=== PATIENT | female | born 1965 | race Caucasian/White ===

== ENCOUNTER 2016-06-06 20:45 | Emergency (ER) | payer BC, OTHER ==
[2016-06-06] MEDS ORDERED: Sodium Chloride 0.9% 1,000 ML PRIMARY IV ONE (21:14)
[2016-06-06] MEDS ORDERED: ONDANSETRON 4 MG/2 ML VIAL IVP ONE (21:14)
--- NOTE | 2016-06-06 21:15 | EKG ---
[address] [address] Measurements Intervals [place] Rate: 50 P: 42 GA: 138 QRS: 76 QRSD: 84 T: 65 QT: 413 QTc: 386 Interpretive Statements SINUS BRADYCARDIA No previous ECG available for comparison Electronically Signed On 06-07-16 08:41:32 MST by Prasanth Soares MD [email or web address]
[2016-06-06 21:21] LABS: BASOPHILS # (AUTO) 0.02 10*3/UL; BASOPHILS % (AUTO) 0.3 % (0-1); EOSINOPHILS % (AUTO) 2.9 % (0-8); HEMATOCRIT 40.4 % (37.0-47.0); HEMOGLOBIN 13.5 g/dL (12.0-16.0); IMM GRAN % (AUTO) 0.2 % (0-5); IMM GRAN# (AUTO) 0.01 10*3/UL; LYMPHOCYTES % (AUTO) 35.4 % (10-50); MEAN CORPUSCULAR HGB CONC 33.4 g/dL (33-37); MEAN PLATELET VOLUME 9.5 FL (7.4-12.2); MONOCYTES # (AUTO) 0.62 10*3/UL (0.3-0.8); NEUTROPHILS # (AUTO) 3.19 10*3/UL; NEUTROPHILS % (AUTO) 51.2 % (50-80); RDW COEFFICIENT OF VARIATION 13.6 % (11.5-14.5); RED BLOOD COUNT 4.66 10^6/uL (4.20-5.40); WHITE BLOOD COUNT 6.22 10^3/uL (4.8-10.8)
--- NOTE | 2016-06-06 21:21 | PDOC ---
Abdomen/Flank HPI - General Chief Complaint: Abdomen Pain Stated Complaint: EPIGASTRIC PAIN SINCE 1200 Date Seen by Provider: 06/06/16 Time Seen by Provider: 21:16 Source: POSITIVE: Patient Exam Limitations: POSITIVE: No limitations Nurse's Notes Reviewed & Considered: Yes - History of Present Illness Initial Comments: Patient comes in today with chief complaint of abdominal pain. Patient developed epigastric abdominal pain at approximately noon today. She has had pain radiating into her chest that she describes as sharp. She denies any shortness of breath, no cough, she denies any nausea vomiting or diarrhea, no fever chills or sweats. Body Location Affected: REPORTS: Chest, Abdomen Timing: REPORTS: Abrupt Duration: <24 hours Quality: REPORTS: "Pain", Sharpness, Stabbing Abdominal Pain Onset Location: REPORTS: RUQ, LUQ, Epigastric Abdominal Pain Radiation: REPORTS: Epigastric, Chest Context: REPORTS: None Modifying Factors: improves with: Nothing Associated Symptoms: REPORTS: Chest pain Similar Symptoms Previously: No Recent Care Received: REPORTS: Denies Any Prior Injuries Related to Current Complaint?: No - Patient Home Medications Home Medications: Home Medications Acyclovir 1 tab PO BID #10 tab 05/27/13 Amphet Asp/Amphet/D-Amphet [Adderall 30 mg Tablet] 30 mg PO BID 06/06/16 - Patient Allergies Allergies/Adverse Reactions: Allergies Allergy/AdvReac Type Severity Reaction Status Date / Time No Known Drug Allergies Allergy Unknown NOT Verified 06/06/16 21:02 APPLICABLE Past Medical History - heen HEENT History: Denies History Cardiovascular History: Other (please comment) Additional Cardiovasular History: ATRIAL SEPTAL DEFECT Respiratory History: Sleep Apnea, Home CPAP Use Additional Gastrointestinal History: FLAT AND RIBBON LIKE STOOLS/OBESITY Genitourinary History: Incontinence Endocrine History: Denies History Musculoskeletal History: Back Pain Prosthesis or Implant: No Neurological History: Denies History Blood Disorders: Denies History Psychiatric History: Depression, Anxiety Disorders History of Sexually Transmitted Diseases: No Cancer History: Other (please comment) History of MDRO: No History of Other Communicable Diseases: No Alcohol Use: Occasionally Substance Use Type: None Previous Surgical History: Yes Type / Date of Surgery: ASD SURGERY 12-18/BLADDER SLING 07-09-05/ MARY/ GASTRIC BYPASS 01/22/11/HYSTER 04/14/99/TWO LEFT KNEE SCOPES/THORACOTOMY 04/10/12 Anesthesia Reactions: No Malignant Hyperthermia: No ROS - Limitations ROS Limitations: No Limitations Constitution: REPORTS: Denies Symptoms Cardiovascular: REPORTS: Chest Pain Respiratory: REPORTS: Denies Resp Symptoms Neurological: REPORTS: Denies Neuro Symptoms Gastrointestinal: REPORTS: Abdominal Pain Endocrine: REPORTS: Denies Symptoms Musculoskeletal: REPORTS: Denies MS Symptoms Genitourinary: REPORTS: Denies Symptoms Eyes: REPORTS: Denies Symptoms ENT: REPORTS: Denies Symptoms Skin: REPORTS: Denies Skin Symptoms Lympathic: REPORTS: Denies Lympathic Symptoms Immunologic: POSITIVE: Denies Symptoms Psychiatric: POSITIVE: Denies Psych Symptoms Abdominal/Flank Pain PE - General Appearance General Appearance: POSITIVE: Alert, Cooperative, No Acute Distress, No Evidence of Trauma - HEENT HEENT: POSITIVE: Head Inspection Nml, Eyes Inspection Nml, Ears Inspection Nml, Nose Inspection Nml, PERRL, EOMI - Neck Neck: POSITIVE: Normal Inspection - Respiratory Respiratory: POSITIVE: No Respiratory Distress, Breath Sounds Normal, Chest Non- Tender - Cardiovascular Cardiovascular: POSITIVE: Regular Rate and Rhythm, Heart Sounds Normal - Chest Chest: POSITIVE: Non Tender - Abdomen Abdomen: Soft: (All Quadrants), Normal Bowel Sounds: (All Quadrants), Tenderness Noted: (RUQ), (LUQ), Guarding: (RUQ), (LUQ) - Back Back: POSITIVE: Normal Inspection - Skin Skin: POSITIVE: Intact, Normal For Race, Warm, Dry, No Rash - Extremities Extremity: Non-Tender: (All Extremities), Normal ROM: (All Extremities), Normal Inspection: (All Extremities) - Neurological Neurological: POSITIVE: Affect Apporpriate, Oriented X3 Abdomen Progress - Results Reviewed by me Xrays/CTs/US Reviewed by me: Yes Discussed with Radiologist: Yes Lab Results Reviewed: Yes Lab Results:: Laboratory Results 06/06/16 06/06/16 Range/Units 21:10 21:55 WBC 6.22 (4.8-10.8) 10^3/uL RBC 4.66 (4.20-5.40) 10^6/uL Hgb 13.5 (12.0-16.0) g/dL Hct 40.4 (37.0-47.0) % MCV 86.7 (81-99) FL MCH 29.0 (27-31) PG MCHC 33.4 (33-37) g/dL RDW Std Deviation 42.4 (39-50) fL RDW Coeff of Anastasiia 13.6 (11.5-14.5) % Plt Count 266 (140-350) 10*3/uL MPV 9.5 (7.4-12.2) FL Immature Gran % (Auto) 0.2 (0-5) % Neut % (Auto) 51.2 (50-80) % Lymph % (Auto) 35.4 (10-50) % [place] % (Auto) 10.0 (5-15) % Eos % (Auto) 2.9 (0-8) % Baso % (Auto) 0.3 (0-1) % Immature Gran # (Auto) 0.01 10*3/UL Neut # (Auto) 3.19 10*3/UL Lymph # (Auto) 2.20 10*3/uL [place] # (Auto) 0.62 (0.3-0.8) 10*3/UL Eos # (Auto) 0.18 10*3/UL Baso # (Auto) 0.02 10*3/UL WBC Morphology Comment Normal morphology (NORM) Plt Morphology Comment Normal morphology (NORM) RBC Morph Comment Normal morphology (NORM) D-Dimer 0.44 (0.00-0.59) mg/L Sodium 140 (135-145) meq/L Potassium 4.3 (3.8-5.2) meq/L Chloride 105 (98-112) meq/L Carbon Dioxide 27 (23-33) meq/L Anion Gap 8 (5-20) BUN 15 (7-22) mg/dL Creatinine 0.7 (0.50-1.20) mg/dL Estimated GFR > 60 (>60 ml/min/1.73m(2)) BUN/Creatinine Ratio 21.42 H (6-20) Glucose 91 (78-110) mg/dL Calculated Osmolality 290.0 (267-292) mOsm/kg Calcium 9.6 (8.7-10.7) mg/dL Magnesium 2.0 (1.6-2.4) mg/dL Total Bilirubin 0.3 (0.3-1.2) mg/dL AST 29 (8-39) IU/L ALT 37 (9-52) IU/L Alkaline Phosphatase 93 (38-126) IU/L Troponin I < 0.012 (< 0.040) ng/mL Total Protein 7.0 (6.1-8.0) g/dL Albumin 4.0 (3.5-4.8) g/dL Globulin 2.9 (2.50-4.10) g/dL Albumin/Globulin Ratio 1.30 (1.3-2.0) mg/g Ur Collection Type Voided specimen Urine Color Yellow Urine Clarity Clear (CLEAR) Urine pH 6.0 (5.0-8.5) Ur Specific [place] 1.010 (1.005-1.030) Urine Protein Negative (NEG) mg/dl Urine Glucose (UA) Negative (NEG) mg/dL Urine Ketones Negative (NEG) Urine Occult Blood Negative (NEG) Urine Nitrate Negative (NEG) Urine Bilirubin Negative (NEG) Urine Urobilinogen 0.2 (0.2) EU/dL Ur Leukocyte Esterase Large (NEG) Urine RBC None (NONE) /hpf Urine WBC 25-50 (NONE) Ur Squamous Epith Cells Moderate (NONE) Ur Renal Epithelial Cell None (NONE) Urine Crystals None Urine Bacteria Few (NONE) Urine Casts None (NONE) Urine Mucus None (NONE) Urine Trichomonas None (NONE) Urine Yeast None (NONE) Ur Culture Indicated? Culture set EKG Interpretation:: POSITIVE: Normal Sinus Rhythm - Patient's Progress Pain Medication Addressed: POSITIVE: Yes Re-examine Time: 00:01 Status: POSITIVE: Improved MDM / ED Course: Patient was examined, IV started, blood drawn and sent to the lab for studies, CT scan of her abdomen was obtained, EKG was obtained. Patient received IV normal saline, Zofran, morphine. Her pain was intermittent, and crampy in nature. Findings: CT scan shows no acute intra-abdominal abnormalities. Laboratory findings are unremarkable. EKG shows a sinus rhythm per my interpretation. Assessment: Abdominal pain of unknown source. Plan: Discharge home, Zofran and [place] for pain, clear liquids for 24 hours, advance diet. She is to follow-up with her primary care physician. Patient Care Time - Estimated PCT Patient Care Time (In Minutes): 45 Vital Signs - Recent Vital Signs Vital Signs: Vital Signs (Last 8 hours) Temp Pulse Resp BP Pulse Ox 06/06/16 20:45 97.2 F 71 16 123/73 95 - VS Reviewed Vital Signs Reviewed: Yes Discharge Clinical Impression: Abdominal pain Discharge Disposition: Discharged to Home Condition: Stable Patient Instructions Given at Discharge: Acute Abdominal Pain (ED) Follow Up With: NONE,NONE [NON-STAFF] -
[2016-06-06 21:22] LABS: PLATELET MORPHOLOGY COMMENT NORMAL MORPHOLOGY (NORM)
[2016-06-06 21:31] LABS: ASPARTATE AMINO TRANSFERASE 29 IU/L (8-39); BILIRUBIN,TOTAL 0.3 mg/dL (0.3-1.2); BLOOD UREA NITROGEN 15 mg/dL (7-22); BUN/CREATININE RATIO 21.42 (6-20); CALCIUM 9.6 mg/dL (8.7-10.7); CHLORIDE 105 meq/L (98-112); CREATININE 0.7 mg/dL (0.50-1.20); EST GLOMERULAR FILTRATION > 60 (>60 ml/min/1.73m(2)); GLUCOSE 91 mg/dL (78-110); POTASSIUM 4.3 meq/L (3.8-5.2); SODIUM 140 meq/L (135-145)
[2016-06-06 21:47] VITALS: TEMP 97.2
[2016-06-06] MEDS ORDERED: Belladon/PHENobarbital Elixir 10 ML, Lidocaine Viscous Liquid 2% 15 ML, Mag Hyd/Al Hyd/... PO ONE ×3 (21:55)
[2016-06-06 21:58] LABS: BILIRUBIN,URINE NEGATIVE (NEG); CLARITY,URINE CLEAR (CLEAR); GLUCOSE, URINE (UA) NEGATIVE (NEG); LEUKOCYTE ESTERASE ,URINE LARGE (NEG); NITRATE,URINE NEGATIVE (NEG); OCCULT BLOOD,URINE NEGATIVE (NEG); PROTEIN,URINE NEGATIVE (NEG); UROBILINOGEN,URINE 0.2 EU/dL (0.2)
[2016-06-06 22:01] LABS: URINE SAMPLE TYPE VOIDED SPECIMEN; WBC,URINE 25-50
[2016-06-06 22:02] LABS: BACTERIA,URINE FEW; SQUAMOUS EPITHELIAL CELL,UR MODERATE
[2016-06-06] MEDS ORDERED: MAG HYDROX/AL HYDROX/SIMETH 30 ML SUSP PO ONE (22:02)
[2016-06-06] MEDS ORDERED: LIDOCAINE 2% VISCOUS(20 MG/1 ML) - 15 ML UD CUP PO ONE (22:02)
[2016-06-06] MEDS ORDERED: BELLADONNA ALKALOIDS/PHENOBARB 32.4 MG/10 ML PO ONE (22:02)
[2016-06-06] MEDS ORDERED: Pantoprazole Inj 40 MG in Normal Saline Flush 10 ML IVP ONE (22:26)
[2016-06-06] MEDS ORDERED: MORPHINE SULFATE 4 MG/1 ML IVP ONE ×2 (22:46→23:36)
[2016-06-06] MEDS ORDERED: MORPHINE SULFATE 4 MG/1 ML ONE (22:52)
[2016-06-06] MEDS ORDERED: NITROGLYCERIN SR 2.5 MG CAPSULE PO ONE (23:28)
[2016-06-06] MEDS ORDERED: NITROGLYCERIN 0.4 MG SL TAB (BOTTLE OF 3) SL ONE (23:29)
--- NOTE | 2016-06-06 23:53 | DI ---
HISTORY: Epigastric pain. COMPARISON: None available. TECHNIQUE: Contiguous transaxial computed tomographic images were obtained of the abdomen and pelvis per routine protocol with IV contrast. Coronal and sagittal reformat images were performed. FINDINGS: LUNG BASES: Clear. INFERIOR MEDIASTINUM: Unremarkable. LIVER: Normal in size and attenuation with no focal abnormalities. GALLBLADDER AND BILE DUCTS: Status post cholecystectomy. No biliary dilatation. SPLEEN: Normal in size and attenuation with no focal abnormalities. PANCREAS: Normal in size and attenuation with no focal abnormalities. ADRENALS: Normal in size and attenuation with no focal abnormalities. : There is a 1 cm low-density lesion on the left cortex of the kidney which is too small to charac terize. The right kidney is normal. There is no ureterolithiasis or hydronephrosis. GI: There are post surgical changes within the stomach with a small hiatal hernia. Likely status po st gastric bypass. No evidence of bowel obstruction or focal inflammation. No focal bowel wall thic [place]. Normal appendix in the right lower quadrant. PELVIS: Within normal limits with no mass identified. VESSELS: Aorta is normal in size with no evidence of aneurysm or rupture. BONES: No acute bony abnormality. No suspicious osteolytic or osteoblastic lesion. SOFT TISSUES: Unremarkable. IMPRESSION: 1. No acute abdominal or pelvic process identified. 2. There is a 1 cm low-density lesion on the left renal cortex which is too small to characterize and statistically represents a cyst. Comparison to prior examinations is recommended versus MRI to atte mpt to characterize this as a cyst on a nonemergent basis.
[2016-06-07] MEDS ORDERED: Ondansetron ODT Tab 4 MG TAB PO SCH (00:15)
[2016-06-07] MEDS ORDERED: HYDROcodone-APAP 5 MG -325 MG TABLET PO SCH (00:15)
[2016-06-07] MEDS ORDERED: GLYCERIN SUPPOSITORY RECTAL ONE (00:24)
[2016-06-07] MEDS ORDERED: GLYCERIN SUPPOSITORY RECTAL SCH (00:30)
[2016-06-07 01:02] VITALS: RESP 18
== END 2016-06-07 00:35 | disposition home or self-care (01) ==
LOC: ER 20:45
DX: R10.13 Epigastric pain (principal)
CPT/HCPCS: 74177; 80053; 81001; 81003; 83735; 84484; 85025; 85379; 87088; 93005; 93010; 96374; 96375; 96376; 99284; J2270; J2405; J3490; J7030